=== PATIENT | female | born 1975 | race Caucasian/White ===

== ENCOUNTER → 2017-01-02 21:46 | Outpatient (CLI) | payer OTHER | END | disposition home or self-care (01) | LOC: D.MAMMO 15:15 | DX: Z12.31 Encounter for screening mammogram for malignant neoplasm of breast (principal) ==

== ENCOUNTER 2017-04-05 22:33 | Emergency (ER) | payer OTHER ==
[2017-04-05 23:05] LABS: APPEARANCE CLEAR (CLEAR); BILIRUBIN NEGATIVE (NEGATIVE); COLOR YELLOW (YELLOW); GLUCOSE NEGATIVE (NEGATIVE); KETONE NEGATIVE (NEGATIVE); NITRITE NEGATIVE (NEGATIVE); PROTEIN NEGATIVE (NEGATIVE); UROBILINOGEN NORMAL (NORMAL)
[2017-04-05 23:06] LABS: HCG URINE NEGATIVE (NEGATIVE)
[2017-04-05 23:19] LABS: UDS - AMPHET NEGATIVE QUAL (NEGATIVE); UDS - BARB NEGATIVE QUAL (NEGATIVE); UDS - BENZO NEGATIVE QUAL (NEGATIVE); UDS - COCAINE NEGATIVE QUAL (NEGATIVE); UDS - OPIATE NEGATIVE QUAL (NEGATIVE); UDS - PCP NEGATIVE QUAL (NEGATIVE); UDS - THC NEGATIVE QUAL (NEGATIVE)
== END 2017-04-06 00:58 | disposition home or self-care (01) ==
LOC: D.ER 22:33
PROVIDERS: Family Medicine
DX: R42 Dizziness and giddiness (principal); F17.200 Nicotine dependence, unspecified, uncomplicated

== ENCOUNTER → 2018-06-04 10:44 | Outpatient (CLI) | payer OTHER ==
[~2018-06-04 10:44] MED LIST: HYDROCODON-ACE1 EAC7 PO; IBUPROFEN800 MG PO; PRENAVITE1 TAB PO
== END | disposition home or self-care (01) ==
LOC: D.CT 10:44
DX: O26.899 Other specified pregnancy related conditions, unspecified trimester (principal); Z3A.00 Weeks of gestation of pregnancy not specified

== ENCOUNTER → 2018-06-04 14:28 | Outpatient (CLI) | payer OTHER ==
[2018-06-04 15:35] LABS: HEMATOCRIT 34.6 % (36.0-48.0); MCH 31.3 pg (26.0-34.0); MCHC 34.7 g/dL (31.0-37.0); MCV 90.3 fL (80.0-100.0); MEAN PLATELET VOLUME 11.2 fL (7.4-10.4); RBC 3.83 10x6/uL (4.00-5.40); RDW 13.7 % (11.5-14.5); WBC 8.7 10x3/uL (4.8-10.8)
[2018-06-04 16:17] LABS: UDS - AMPHET NEGATIVE QUAL (NEGATIVE); UDS - BARB NEGATIVE QUAL (NEGATIVE); UDS - BENZO NEGATIVE QUAL (NEGATIVE); UDS - COCAINE NEGATIVE QUAL (NEGATIVE); UDS - OPIATE NEGATIVE QUAL (NEGATIVE); UDS - PCP NEGATIVE QUAL (NEGATIVE); UDS - THC NEGATIVE QUAL (NEGATIVE)
--- NOTE | 2018-06-04 16:39 | NUR ---
BRIEF REPORT TO DR SMITH. WILL REPORT TO DR ORLANDO.
[2018-06-05 07:20] LABS: HEPATITIS C ANTIBODY <0.1 S/CO RAT (0.0-0.9); RAPID PLASMA REAGIN Non Reactive (Non Reactive)
[2018-06-05 12:13] LABS: RUBELLA IGG 3.46 index (Immune >0.99)
[2018-06-06 15:12] LABS: HGB SOLUBILITY (SICKLE SCREEN) Negative (Negative)
== END | disposition home or self-care (01) ==
LOC: D.LDO 14:28
PROVIDERS: Obstetrics & Gynecology
DX: O26.899 Other specified pregnancy related conditions, unspecified trimester (principal); Z3A.00 Weeks of gestation of pregnancy not specified

== ENCOUNTER → 2018-08-22 12:25 | Outpatient (CLI) | payer OTHER | END | disposition home or self-care (01) | LOC: D.LDO 12:25 | PROVIDERS: ATTEND Obstetrics & Gynecology | DX: O26.899 Other specified pregnancy related conditions, unspecified trimester (principal); Z3A.00 Weeks of gestation of pregnancy not specified ==

== ENCOUNTER → 2018-09-05 09:12 | Outpatient (CLI) | payer OTHER ==
[~2018-09-05 09:12] MED LIST changes: -HYDROCODON-ACE1 EAC7 PO; -IBUPROFEN800 MG PO
== END | disposition home or self-care (01) ==
LOC: D.LDO 09:12
PROVIDERS: ATTEND Obstetrics & Gynecology
DX: O09.519 Supervision of elderly primigravida, unspecified trimester (principal)

== ENCOUNTER → 2018-09-12 13:10 | Outpatient (CLI) | payer OTHER | END | disposition home or self-care (01) | LOC: D.LDO 13:10 | PROVIDERS: ATTEND Obstetrics & Gynecology | DX: O26.90 Pregnancy related conditions, unspecified, unspecified trimester (principal) ==

== ENCOUNTER 2018-09-16 21:12 | Inpatient (IN) | payer OTHER ==
[~2018-09-16] VITALS: Ht 170.2 cm; Wt 86.6 kg
[2018-09-17 00:05] VITALS: BP 124/77; Ht 170.2 cm; Wt 86.6 kg
[2018-09-17 02:13] LABS: RBC 3.91 10x6/uL (4.00-5.40); WBC 9.1 10x3/uL (4.8-10.8)
[2018-09-17 02:14] LABS: HEMATOCRIT 34.4 % (36.0-48.0); MCH 30.7 pg (26.0-34.0); MCHC 34.9 g/dL (31.0-37.0); MEAN PLATELET VOLUME 12.6 fL (7.4-10.4); RDW 13.7 % (11.5-14.5)
[2018-09-17 02:41] LABS: APPEARANCE CLEAR (CLEAR); BILIRUBIN NEGATIVE (NEGATIVE); COLOR YELLOW (YELLOW); GLUCOSE NEGATIVE (NEGATIVE); KETONE NEGATIVE (NEGATIVE); NITRITE NEGATIVE (NEGATIVE); PROTEIN NEGATIVE (NEGATIVE); SPECIFIC GRAVITY 1.015 (1.005-1.020); UROBILINOGEN NORMAL (NORMAL)
[2018-09-17 22:10] VITALS: BP 108/56
--- NOTE | 2018-09-17 22:11 | NUR ---
pt medicated with tylenol per md order at this time. no distress/pain noted. pt informed that she would be npo at midnight. understanding verbalized. shantell golden rn
--- NOTE | 2018-09-17 23:28 | NUR ---
pt medicated with toradol at this time. denies pain. shantell golden rn
[2018-09-18] VITALS (12 sets, daily range): BP systolic 96–125; BP diastolic 49–59
--- NOTE | 2018-09-18 | NUR ---
ALL FOOD AND DRINK REMOVED FROM PATIENT AT THIS TIME. PT NPO FOR PROCEDURE IN AM. Lukas HOBBS RN
[2018-09-18 01:00] LABS: BASOPHILS 0.2 % (0-2); EOSINOPHILS 0.2 % (0-7); HEMATOCRIT 31.5 % (36.0-48.0); HEMOGLOBIN 10.8 g/dL (12-16); IMMATURE GRANULOCYTES 0.3 % (0-5); MCH 29.9 pg (26.0-34.0); MCHC 34.3 g/dL (31.0-37.0); MCV 87.3 fL (80.0-100.0); MEAN PLATELET VOLUME 11.2 fL (7.4-10.4); NEUTROPHILS 82.3 % (40-80); RBC 3.61 10x6/uL (4.00-5.40); RDW 13.5 % (11.5-14.5)
[2018-09-18 01:03] LABS: PLATELET COUNT 147 10x3/uL (130-400)
--- NOTE | 2018-09-18 02:00 | NUR ---
PT RESTING COMFORTABLY. RESPS EVEN AND UNLABORED. Lukas HOBBS RN
--- NOTE | 2018-09-18 03:55 | NUR ---
PT ASSISTED WITH AT THIS TIME. DENIES PAIN. PT PROVIDED WITH LANOLIN FOR NIPPLE DISCOMFORT. NO OTHER NEEDS VOICED. WILL CONTINUE TO MONITOR. Lukas HOBBS RN
--- NOTE | 2018-09-18 07:27 | NUR ---
RECEIVED PT LYING SUPINE IN BED. CARING FOR WITH MUCH WARMTH SHOWN. VSS. HRRR WITHOUT AUDIBLE MURMUR. BBS CLEAR. BS X 4. ABDOMEN SOFT/NON-DISTENDED. FUNDUS FIRM AT U/1. RUBRA LOCHIA SMALL AMT. NO CLOTS OR HEAVY BLEEDING PER PT STATES. NEG HOMANS' SIGN. PPP. NO EDEMA NOTED TO BLE. SL TO RIGHT ARM FLUSHES EASILY WITH 10 ML NS. LR UP AT 125 ML/HR FOR PRE-OP. SITE CLEAR. PT RISSA WELL.
--- NOTE | 2018-09-18 07:30 | NUR ---
DR ORLANDO TO ROOM. VISITS WITH PT. NOTIFIED PT HAD SIP OF COKE ZERO AT 0300 THIS AM.
--- NOTE | 2018-09-18 07:55 | NUR ---
PT OOB AND AMB TO BR TO VOID.
--- NOTE | 2018-09-18 07:57 | NUR ---
PT OOB AND AMB TO BR TO VOID.
[2018-09-18 08:11] LABS: RAPID PLASMA REAGIN Non Reactive (Non Reactive)
--- NOTE | 2018-09-18 08:15 | NUR ---
PT TO OR VIA BED PER [facility].
--- NOTE | 2018-09-18 09:00 | NUR ---
Monica Spain 09/18/18 Patient not available to speak with [facility] regarding . Having medical procedure done. Noemy Gotti, CLC
--- NOTE | 2018-09-18 10:30 | NUR ---
received pt by bed from aggie logan. pt has dermabond to umbilical area, c/d/i. abdomen palpates soft. ice pack placed over gown to incision. pt denies n/v, denies sob, or difficulty breathing. lr set on pump to infuse at 125 ml/hr, iv site without redness or swelling. pt has ice chips, lidia well. will continue to monitor. srup x2, call light and phone within reach. family at bedside.
--- NOTE | 2018-09-18 10:45 | NUR ---
report to veronica recinos rn.
--- NOTE | 2018-09-18 10:56 | NUR ---
PT C/O PAIN/PRESSURE OF "3" ON 0-10 PAIN SCALE TO UMBILICUS. TORADOL 10 MG AND TYLENOL 1000 MG GIVEN PO ORDERED. PT INSTRUCTED ON MEDS. VERBALIZES UNDERSTANDING.
--- NOTE | 2018-09-18 12:30 | NUR ---
PT SITTING UP IN BED. VISITS WITH FAMILY. DENIES C/O OR NEEDS.
--- NOTE | 2018-09-18 14:11 | NUR ---
PT OOB AND AMB TO BR. VOIDS 350 ML OF BLOOD-TINGED URINE. PERICARE DONE PER PT. PANTIES AND PAD ON. PT BACK TO BED. RISSA WELL.
--- NOTE | 2018-09-18 14:36 | NUR ---
INCISION TO UMB WITHOUT REDNESS, SWELLING OR DRAINAGE NOTED. FRESH ICE PACK TO INCISION. PT DENIES C/O OR NEEDS.
--- NOTE | 2018-09-18 14:46 | NUR ---
PT LYING SUPINE IN BED. EYES CLOSED. RESP NON-LABORED. PT NOT DISTURBED TO ALLOW FOR REST. SR UPX2. CALL LIGHT IN REACH.
--- NOTE | 2018-09-18 15:59 | NUR ---
PT C/O INCISIONAL PAIN OF "5" ON 0-[address] ORLANDO NOTIFIED OF PT C/O PAIN. ORDER RECEIVED.
--- NOTE | 2018-09-18 16:24 | NUR ---
PT GIVEN PERCOCET 5/325 PO ORDERED. PT INSTRUCTED ON MED. VERBALIZES UNDERSATANDING.
--- NOTE | 2018-09-18 17:58 | NUR ---
PT C/O PAIN OF "5" ON 0-10 PAIN SCALE. TORADOL 10 MG GIVEN PO ORDERED. PT INSTRUCTED ON MED. VERBALIZES UNDERSTANDING.
--- NOTE | 2018-09-18 19:00 | NUR ---
REPORT RECEIVED FROM NEERAJ MARTINEZ.
--- NOTE | 2018-09-18 19:30 | NUR ---
PATIENT SITTING UP IN BED. ASSESSMENT AND VITAL SIGNS DONE AT THIS TIME. STATES PAIN 4 OUT OF 10. RESPIRATIONS AT EASE. LUNG SOUNDS CLEAR IN ALL ROSALES. HEART REGULAR RATE AND RHYTHM. ABDOMEN SOFT AND TENDER TO TOUCH. INCISION NOTED TO UMBILICUS. DERMABOND NOTED TO INCISION. INCISION INTACT. NO REDNESS OR EDEMA NOTED. BOWEL SOUNDS PRESENT X 4 QUADRANTS. FUNDUS FIRM, 1 BELOW UMBILICUS. SCANT AMOUNT OF LOCHIA NOTED TO LEONCIO PAD. + 1 EDEMA NOTED TO BLE. PATIENT STATES SHE HAS BEEN UP VOIDING. DENIES ANY NEEDS OR CONCERNS. BED IN LOWEST POSITION, SIDE RAILS UP X 2, C/L AND WATER WITHIN REACH.
--- NOTE | 2018-09-18 21:20 | NUR ---
PATIENT SITTING UP IN BED HOLDING INFANT. STATES PAIN 6 OUT OF 10. PRN PERCOCET 10/325 ADMINISTERED PO AT THIS TIME. SCHEDULED MILK OF MAGNESIA ADMINISTERED. PATIENT DENIES ANY FURTHER NEEDS. BED IN LOWEST POSITION, SIDE RAILS UP X2, C/L AND WATER WITHIN REACH.
--- NOTE | 2018-09-18 23:00 | NUR ---
PATIENT SITTING UP IN BED. AT BEDSIDE. DENIES ANY NEEDS AT THIS TIME. BED IN LOWEST POSITION, SIDE RAILS UP X 2, C/L AND WATER WITHIN REACH.
--- NOTE | 2018-09-19 01:02 | NUR ---
PATIENT SITTING UP IN BED HOLDING INFANT. STATES PAIN 5 OUT OF 10. TORADOL 10 MG ADMINISTERED PO AT THIS TIME. DENIES ANY FURTHER NEEDS. BED IN LOWEST POSITION, SIDE RAILS UP X 2, C/L AND WATER WITHIN REACH.
--- NOTE | 2018-09-19 03:07 | NUR ---
PATIENT SITTING UP IN BED HOLDING INFANT. PATIENT STATES PAIN 5 OUT OF 10. PRN PERCOCET 5/325 ADMINISTERED PO AT THIS TIME. PATIENT DENIES ANY FURTHER NEEDS. BED IN LOWEST POSITION, SIDE RAILS UP X 2, C/L AND WATER WITHIN REACH.
--- NOTE | 2018-09-19 04:30 | NUR ---
PATIENT LYING QUIETLY IN BED WITH EYES CLOSED. RESPIRATIONS AT EASE. NO SIGNS OF DISTRESS NOTED. BED IN LOWEST POSITION, SIDE RAILS UP X 2, C/L AND WATER WITHIN REACH.
[2018-09-19 06:11] VITALS: BP 124/65
--- NOTE | 2018-09-19 06:12 | NUR ---
PATIENT LYING QIETLY IN BED WITH EYES CLOSED. EASILY AROUSED. VITAL SIGNS DONE AT THIS TIME. DENIES PAIN AT THIS TIME. DENIES ANY NEEDS. BED IN LOWEST POSITION, SIDE RAILS UP X 2, C/L AND WATER WITHIN REACH.
--- NOTE | 2018-09-19 07:50 | NUR ---
ASSESSMENT DONE. PT SITTING UP IN BED HOLDING . REG BREAKFAST SERVED. DENIES PAIN PERINEAL AREA BUT CO PAIN AROUND UMBILICUS AREA- TUBAL INCISION. SOME REDNESS NOTED-SOFT- NO DRAINAGE. DENIES NEEDS. SCANT LOCHIA NOTED ON PAD.
[2018-09-19 07:54] VITALS: BP 104/57
--- NOTE | 2018-09-19 08:09 | NUR ---
DR ORLANDO HERE TO SEE PT.
--- NOTE | 2018-09-19 08:50 | NUR ---
STATES THAT SHE WOULD LIKE PAIN MEDICATION- CO PAIN AT UMBILICUS. RATES PAIN A 5 ON SCALE OF 0-10. MED GIVEN.
--- NOTE | 2018-09-19 11:00 | NUR ---
PT STATES SHE IS READY TO GO HOME. INFORMED THAT NEED DISCHARGE ORDER FROM MD AND NURSERY WILL NEED TO DISCHARGE INFANT. PFW DISCHARGE INST GIVEN FOR PT TO READ WHILE WAITING ALONG WITH OTHER PT INST- SEE DISCHARGE INSTRUCTION SIGN PAGE. ALSO AWHONN POST WARNINGS GIVEN.
[2018-09-19] MEDS ORDERED: HYDROCODON-ACE1 EAC7 PO (12:33)
[2018-09-19] MEDS ORDERED: IBUPROFEN800 MG PO (12:33)
--- NOTE | 2018-09-19 13:13 | NUR ---
SCRIPTS X 2 - NORCO AND IBUPROFEN GIVEN. PT MED REC GIVEN. DRUG DATA SHEETS GIVEN. PT HEALTH SUMMARY GIVEN. HOSP DISCHARGE INST GIVEN. PT DENIES QUESTIONS. IV SALINE LOCK REMOVED WITH CATH TIP INTACT. BANDAIDE PLACED. DENIES QUESTIONS. INFORMED TO CALL NURSE WHEN NOW READY FOR DISCHARGE AND WE WILL PROVIDE W/C.
--- NOTE | 2018-09-19 14:00 | NUR ---
discharged home with . at side. to auto via w/c.
--- NOTE | 2018-10-03 08:17 | OP ---
PATIENT NAME: JANEEN HAINES MEDICAL RECORD: [id number] :71 LOCATION:[id number] ADMISSION DATE:09/16/18 SURGEON: ROGER ORLANDO MD DATE OF OPERATION: 09/18/2018 PREOPERATIVE DIAGNOSES: 1. Status post vaginal delivery. 2. Unwanted fertility. POSTOPERATIVE DIAGNOSES: 1. Status post vaginal delivery. 2. Unwanted fertility. PROCEDURE: tubal ligation using a Bianca technique. SURGEON: Roger Orlando MD SOUND ASSISTANT: Dr. De Anda. ANESTHESIOLOGIST: Dr. Phillip. ANESTHETIC: FINDINGS: Unremarkable uterine fundus and tubes bilaterally. SPECIMEN REMOVED: Tubes bilaterally. SPECIMEN DISPOSITION: Both tubes sent separately to pathology. ESTIMATED BLOOD LOSS: Minimal. FLUIDS: 500 mL of normal saline. URINE OUTPUT: Quantity sufficient void prior to this procedure. COMPLICATIONS: None. DRAINS: None. INDICATIONS: The patient is a 43-year-old multiparous newly delivered with unwanted fertility. Risks, benefits as well as limitations discussed. The patient understood all risks and wishes to proceed. DESCRIPTION OF PROCEDURE: After informed consent was assured, the patient was taken to the operating room where anesthetic was obtained and the patient is prepped and draped. An infraumbilical incision site is injected with Marcaine. An incision is made. The incision was carried down to the underlying layer of the fascia with the scalpel and the fascia grasped and elevated. Fascia was opened in the midline and extended laterally with Ramos scissors. Using Army-Curlew retractors, the incision was manipulated and the fundus was identified, and the left tube followed to its fimbriated end. This tube was elevated with Combs clamp and then a knuckle developed. The tube was doubly ligated and the intervening segment of tube excised. The ostia was cauterized and it was returned to the abdomen. This was repeated on the contralateral side. Again, the tube was followed to its fimbriated end on the right. A OPERATIVE REPORT [id number] BILLY HAINES knuckle was developed and doubly ligated. The knuckle of tube was excised with Metzenbaum scissors and the ostia cauterized. Adequate hemostasis is achieved. This tube was returned to the abdomen. The fascia was now closed with Vicryl in a running fashion and the subcuticular stitches applied. Dermabond was placed over the incision. Sponge, lap, needle count was correct times 2. The patient tolerated the procedure well and went to the recovery room in stable condition. TRANSINT:[id number] Voice Confirmation ID: [id number] DOCUMENT ID: [id number] ROGER ORLANDO MD at 0817 CC: [id number] DICTATION DATE: 10/01/18 1749 PATIENT INTAKE REPRESENTATIVE: 10/01/18 2316 DIS IN 09/19/18 [place] [id number] [place] [id number]
== END 2018-09-19 14:00 | disposition home or self-care (01) | DRG 798 ==
LOC: D.LD 21:12
PROVIDERS: ADMIT Obstetrics & Gynecology; ATTEND Obstetrics & Gynecology
PROC: 10E0XZZ Delivery of Products of Conception, External Approach (ICD-10-PCS; principal; 2018-09-17)
PROC: 0HQ9XZZ Repair Perineum Skin, External Approach (ICD-10-PCS; 2018-09-17)
PROC: 3E033VJ Introduction of Other Hormone into Peripheral Vein, Percutaneous Approach (ICD-10-PCS; 2018-09-17)
PROC: 0UB74ZZ Excision of Bilateral Fallopian Tubes, Percutaneous Endoscopic Approach (ICD-10-PCS; 2018-09-18)
DX: O99.334 Smoking (tobacco) complicating childbirth (principal); Z37.0 Single live birth; Z3A.39 39 weeks gestation of pregnancy; O70.0 First degree perineal laceration during delivery; Z30.2 Encounter for sterilization; Z30.09 Encounter for other general counseling and advice on contraception

== ENCOUNTER 2019-09-02 19:15 | Outpatient (CLI) | payer MEDICAID ==
[~2019-09-02 19:15] MED LIST changes: +HYDROCODON-ACE1 EAC7 PO; +IBUPROFEN800 MG PO
== END 2019-09-02 23:59 | disposition home or self-care (01) ==
LOC: D.MAMMO 19:15
PROVIDERS: ATTEND Family Medicine
DX: Z12.31 Encounter for screening mammogram for malignant neoplasm of breast (principal)